=== PATIENT | female | born 1945 | race Two or more races ===

== ENCOUNTER 2025-01-15 07:30 | Inpatient (IN) | payer OTHER ==
[~2025-01-15] VITALS: Ht 154.9 cm; Wt 56.2 kg
[2025-01-15 09:34] LABS: BASO % 0.7 % (0.1-1.2); EOS # 0.15 (0.04-0.54); EOS % 2.6 % (0.7-7.0); LYMPH # 1.98 (1.18-3.74); LYMPH % 34.2 % (19.3-53.1); MEAN PLATELET VOLUME 11.30 fl (9.4-12.4); MONO # 0.48 (0.24-0.82); MONO % 8.3 % (4.7-12.5); NEUT # 3.13 (1.56-6.13); NEUT % 54.0 % (34.0-71.1); RED CELL DISTRIBUTION WIDTH 12.3 % (11.6-14.4)
[2025-01-15 09:42] LABS: URINE APPEARANCE Clear; URINE BILIRRUBIN Negative (NEGATIVE); URINE BLOOD Negative; URINE COLOR Yellow; URINE GLUCOSE Negative (NEGATIVE); URINE KETONE Negative (NEGATIVE); URINE LEUKOCYTE Moderate; URINE NITRATE Negative; URINE PROTEIN Trace (NEGATIVE); URINE UROBILINOGEN 0.2 E.U./dl
[2025-01-15 09:46] LABS: URINE BACTERIA 542.2 uL (0.0-1933); URINE EPITHELIAL CELLS 12.2 uL (0.0-38.8); URINE RBC 4.6 uL (0.0-20.8); URINE WBC 39.9 uL (0.0-23.2)
[2025-01-15] MEDS ORDERED: NASACORT16.9 ML (09:53)
[2025-01-15] MEDS ORDERED: BISOPROLOL-HCT1 EACH PO (09:53)
[2025-01-15] MEDS ORDERED: DICLOFENAC-MIS1 EAC1 (09:53)
[2025-01-15 09:57] VITALS: BP 180/90
[2025-01-15 10:02] LABS: INR 1.04
[2025-01-15 10:12] LABS: URINE CAST 0.29 uL (0.0-1.40)
[2025-01-15 10:36] LABS: ALT/SGPT 23.0 U/L (12-78); AST/SGOT 18.0 U/L (15-37); BILIRUBIN TOTAL 0.71 mg/dL (0.3-1.2); BUN CREA RATIO 31.0 (7.0-25.0); CREATININE SERUM 0.61 mg/dL (0.55-1.02); GFR 94.86; GLOBULINA 3.8 G/DL (2.4-3.5); GLUCOSE FASTING 113.0 mg/dL (65-100); OSMOLALITY SERUM 286.0 MOSM/KG (275-295)
[2025-01-21] MEDS ORDERED: CEFAZOLIN SODIUM 1,000 MG VIAL ONE ×2 (10:15→18:33)
[2025-01-21] MEDS ORDERED: ONDANSETRON HCL 2 MG/ML VIAL IV PRN (10:45)
[2025-01-21] MEDS ORDERED: TRANEXAMIC ACID 100MG/1ML (1000MG) AMPUL ONE (11:11)
[2025-01-21] MEDS ORDERED: KETOROLAC TROMETHAMINE 60 MG VIAL IM ONE (11:53)
[2025-01-21] MEDS ORDERED: VANCOMYCIN HCL 1,000 MG VIAL ONE (11:53)
[2025-01-21] MEDS ORDERED: LIDOCAINE HCL 1%/EPINEPHRINE 20ML VIAL IJ ONE (11:53)
[2025-01-21] MEDS ORDERED: MORPHINE SULFATE 4 MG/ML CARTRIDGE IV SCH (12:00)
[2025-01-21] MEDS ORDERED: CEFAZOLIN SODIUM 1,000 MG VIAL IV SCH (12:00)
[2025-01-21] MEDS ORDERED: OxyCODONE HCL 5 MG TABLET (ROXICODONE) PO SCH (12:00)
[2025-01-21] MEDS ORDERED: SUGAMMADEX SODIUM 200 MG/2 ML VIAL IV ONE (14:07)
[2025-01-21] MEDS ORDERED: hydrALAZINE HCL 20 MG VIAL IV PRN (15:15)
[2025-01-21] MEDS ORDERED: ONDANSETRON HCL 2 MG/ML VIAL ONE (18:38)
[2025-01-21] MEDS ORDERED: ONDANSETRON HCL 2 MG/ML VIAL IV ONE (18:45)
[2025-01-21 20:14] VITALS: BP 174/80; O2SAT 95
[2025-01-21] MEDS ORDERED: ORPHENADRINE CITRATE 100 MG TABLET PO SCH (21:00)
[2025-01-21] MEDS ORDERED: GABAPENTIN 100 MG CAPSULE PO SCH (21:00)
[2025-01-22 01:38] VITALS: BP 123/69; O2SAT 98
[2025-01-22 07:29] LABS: BASO % 0.3 % (0.1-1.2); EOS # 0.03 (0.04-0.54); EOS % 0.3 % (0.7-7.0); LYMPH # 1.55 (1.18-3.74); LYMPH % 15.9 % (19.3-53.1); MEAN PLATELET VOLUME 12.20 fl (9.4-12.4); MONO # 1.00 (0.24-0.82); MONO % 10.3 % (4.7-12.5); NEUT # 7.06 (1.56-6.13); NEUT % 72.6 % (34.0-71.1); RED CELL DISTRIBUTION WIDTH 12.3 % (11.6-14.4)
[2025-01-22] MEDS ORDERED: PATIENTS OWN MEDICATION (MEDICAMENTO EN PISO) PO SCH (09:00)
[2025-01-22] MEDS ORDERED: RIVAROXABAN 10 MG TAB PO SCH (09:00)
[2025-01-22 09:16] VITALS: BP 160/66; O2SAT 97
[2025-01-22] MEDS ORDERED: Cyanocobalamin/Mecobalamin 1 TAB.SL SL NR (13:15)
[2025-01-22 14:33] LABS: COVID-19 AG NEGATIVE (NEGATIVE)
[2025-01-22 15:04] LABS: BUN CREA RATIO 17.0 (7.0-25.0); CREATININE SERUM 0.59 mg/dL (0.55-1.02); GFR 98.58; GLUCOSE FASTING 121.0 mg/dL (65-100); OSMOLALITY SERUM 282.0 MOSM/KG (275-295)
[2025-01-22 16:43] VITALS: BP 126/78; O2SAT 94
[2025-01-22] MEDS ORDERED: SOD FERRIC GLUC COMPLX/SUCROSE 62.5 MG/5 ML AMPUL IV SCH (17:00)
[2025-01-23 00:41] VITALS: BP 130/73; O2SAT 94
[2025-01-23 06:24] LABS: BASO % 0.3 % (0.1-1.2); EOS # 0.02 (0.04-0.54); EOS % 0.2 % (0.7-7.0); LYMPH # 1.71 (1.18-3.74); LYMPH % 16.0 % (19.3-53.1); MEAN PLATELET VOLUME 12.00 fl (9.4-12.4); MONO # 1.37 (0.24-0.82); NEUT # 7.51 (1.56-6.13); NEUT % 70.3 % (34.0-71.1); RED CELL DISTRIBUTION WIDTH 12.2 % (11.6-14.4)
[2025-01-23 07:07] LABS: MONO % 12.8 % (4.7-12.5)
[2025-01-23 07:30] VITALS: BP 162/69; O2SAT 95
[2025-01-23] MEDS ORDERED: Cyanocobalamin/Mecobalamin 1 TAB.SL SL SCH (09:00)
[2025-01-23] MEDS ORDERED: LACTULOSE 20 G/30 ML BLIST.PACK PO NR (10:30)
[2025-01-23] MEDS ORDERED: XARELTO10 MG PO (12:08)
[2025-01-23] MEDS ORDERED: NORFLEX100MG PO (12:08)
[2025-01-23] MEDS ORDERED: GABAPENTIN100 MG PO (12:08)
[2025-01-23] MEDS ORDERED: PERCOCET 5-3251 EACH PO (12:09)
[2025-01-23 18:00] VITALS: BP 158/80; O2SAT 98
== END 2025-01-23 18:37 | disposition home or self-care (01) | DRG 470 ==
LOC: SURH 01-21 07:30 → O/R 01-21 09:00 → SURH 01-21 09:00
PROVIDERS: ADMIT Orthopaedic Surgery; ATTEND Orthopaedic Surgery
PROC: 0SRC0JZ Replacement of Right Knee Joint with Synthetic Substitute, Open Approach (ICD-10-PCS; principal; 2025-01-21 09:45)
DX: M17.11 Unilateral primary osteoarthritis, right knee (principal); M85.661 Other cyst of bone, right lower leg; I10 Essential (primary) hypertension; E11.9 Type 2 diabetes mellitus without complications; Z79.4 Long term (current) use of insulin